=== PATIENT | male | born 1990 | race Caucasian/White ===

== ENCOUNTER → 2017-02-15 | Outpatient (CLI) | payer OTHER ==
[2015-05-12 21:30] VITALS: BP 121/70
[~2017-02-15] MED LIST: MOBIC
--- NOTE | 2017-02-16 08:17 | RAD ---
CT of the head without contrast, 02/15/2017: History: Head injury The ventricles are within normal limits in size. There is no shift of the midline structures. There is no evidence of acute intracranial hemorrhage or mass effect. There appears to be a small scalp hematoma in the right parietal region. No underlying bony abnormality is detected. IMPRESSION: No acute intracranial abnormality is identified. PQRS Compliance Statement: One or more of the following individualized dose reduction techniques were utilized for this examination: 1. Automated exposure control 2. Adjustment of the mA and/or kV according to patient size 3. Use of iterative reconstruction technique
== END | disposition home or self-care (01) ==
LOC: RAD 21:10
PROVIDERS: ATTEND Preventive Medicine Occupational Medicine
DX: S09.90XA Unspecified injury of head, initial encounter (principal); X58.XXXA Exposure to other specified factors, initial encounter; Y93.89 Activity, other specified; Y92.89 Other specified places as the place of occurrence of the external cause; Y99.8 Other external cause status
CPT/HCPCS: 70450